=== PATIENT | male | born 2000 | race Caucasian/White ===

== ENCOUNTER 2024-04-28 11:33 | Inpatient (IN) | payer OTHER ==
[~2024-04-28] VITALS: Ht 180.3 cm; Wt 115.8 kg
[2024-04-28] MEDS: KCL 10MEQ/100ML SWI (KRUN) 10 MEQ in IV 1 EA IV ONE ×2 (12:15→15:26)
[2024-04-28] MEDS: NS 1,000 ML IV ONE (12:15)
[2024-04-28] MEDS: METOCLOPRAMIDE INJ 10MG/2ML VIAL IV ONE (12:15)
[2024-04-28 12:16] LABS: BASO # 0.1 10^3/uL (0.0-0.2); BASO % 0.7 % (0.0-1.0); EOS # 0.1 10^3/uL (0.0-0.5); EOS % 1.8 % (0.0-3.0); HEMATOCRIT 47.7 % (42.0-52.0); LYMPH # 2.1 10^3/uL (1.5-5.0); LYMPH % 28.4 % (24.0-44.0); MEAN CORPUSCULAR HEMOGLOBIN 29.1 pg (27.0-33.0); MEAN CORPUSCULAR HGB CONC 35.6 g/dl (32.0-36.5); MEAN CORPUSCULAR VOLUME 81.7 fl (80.0-96.0); MONO # 0.8 10^3/uL (0.0-0.8); MONO % 10.5 % (2.0-8.0); NEUTROPHILS # 4.2 10^3/uL (1.5-8.5); NEUTROPHILS % 57.8 % (36.0-66.0); PLATELET COUNT, AUTOMATED 328 10^3/uL (150-450); RED BLOOD COUNT 5.84 10^6/uL (4.30-6.10); WHITE BLOOD COUNT 7.2 10^3/uL (4.0-10.0)
[2024-04-28] MEDS ORDERED: LORazepam 2 MG/ML 1ML VIAL IV STA (12:31)
[2024-04-28 12:34] LABS: LIPASE 32 U/L (12-53)
[2024-04-28 12:36] LABS: ALKALINE PHOSPHATASE 60 U/L (46-116); ALT/SGPT 28 U/L (7.0-40); AST/SGOT 19 U/L (<34); BILIRUBIN,DIRECT 0.3 MG/DL (<0.4); TOTAL PROTEIN 6.9 G/DL (5.7-8.2)
[2024-04-28 13:02] LABS: MAGNESIUM LEVEL 1.9 MG/DL (1.8-2.4)
[2024-04-28 13:03] LABS: CK-MB VALUE MASS < 1.0 NG/ML (<3.6)
[2024-04-28 13:10] LABS: CPK CREATINE PHOSPHOKINASE 161 U/L (46-171); MB/CK RELATIVE INDEX 0.62 (< OR =4)
[2024-04-28] MEDS: POTASSIUM CHLORIDE 10MEQ SR TABLET PO ONE (13:39)
[2024-04-28 15:55] LABS: AMPHETAMINES LEVEL URINE NEGATIVE (NEGATIVE); BARBITURATES URINE NEGATIVE (NEGATIVE)
[2024-04-28 15:56] LABS: BENZODIAZEPINES URINE NEGATIVE (NEGATIVE); COCAINE METABOLITE URINE NEGATIVE (NEGATIVE); METHADONE URINE NEGATIVE (NEGATIVE); OPIATES URINE NEGATIVE (NEGATIVE); PHENCYCLIDINE URINE NEGATIVE (NEGATIVE)
[2024-04-28 16:03] LABS: CANNABINOIDS URINE POSITIVE (NEGATIVE)
[2024-04-28] MEDS ORDERED: HOME MED LIST COMPLETE! XX SCH (16:10)
[2024-04-28] MEDS ORDERED: LR 1,000 ML IV SCH (16:15)
[2024-04-28] MEDS ORDERED: MOM 30ML SUSPENSION UDC PO PRN (16:15)
[2024-04-28] MEDS: POTASSIUM CHLORIDE 10MEQ SR TABLET PO SCH (16:52)
[2024-04-28] MEDS: ONDANSETRON 4MG ORAL DISINTEGRATING TAB SL SCH (16:52)
[2024-04-28 17:33] VITALS: BP 137/83; TEMP 98.2; O2SAT 98
[2024-04-28] MEDS: ACETAMINOPHEN TAB 650MG DOSE (2X325MG) PO PRN (17:43)
[2024-04-28] MEDS: PINK BISMUTH SUSP 524MG/30ML ORAL SYRINGE PO SCH (17:58)
[2024-04-28] MEDS: POTASSIUM CHLORIDE INJ 20 MEQ in LR 1,000 ML IV SCH (17:58)
[2024-04-28 19:08] LABS: BLOOD UREA NITROGEN 15 MG/DL (9-23); CARBON DIOXIDE LEVEL 30 MMOL/L (20-31); CHLORIDE LEVEL 99 MMOL/L (98-107); CREATININE FOR GFR 0.93 MG/DL (0.70-1.30); GLOMERULAR FILTRATION RATE > 60.0 (>60); GLUCOSE, FASTING 92 MG/DL (60-100); PHOSPHORUS LEVEL 3.4 MG/DL (2.5-4.9); POTASSIUM SERUM 3.7 MMOL/L (3.5-5.1); SODIUM LEVEL 135 MMOL/L (136-145)
[2024-04-28 20:00] VITALS: BP 131/85; TEMP 98.3; O2SAT 99
[2024-04-29 04:00] VITALS: BP 139/87; TEMP 97.9; O2SAT 99
[2024-04-29 07:01] LABS: ALBUMIN 3.7 G/DL (3.2-5.2); BLOOD UREA NITROGEN 12 MG/DL (9-23); CALCIUM LEVEL 8.9 MG/DL (8.5-10.1); CARBON DIOXIDE LEVEL 30 MMOL/L (20-31); CHLORIDE LEVEL 104 MMOL/L (98-107); CREATININE FOR GFR 1.03 MG/DL (0.70-1.30); GLOMERULAR FILTRATION RATE > 60.0 (>60); GLUCOSE, FASTING 93 MG/DL (60-100); MAGNESIUM LEVEL 2.1 MG/DL (1.8-2.4); PHOSPHORUS LEVEL 4.1 MG/DL (2.5-4.9); POTASSIUM SERUM 3.4 MMOL/L (3.5-5.1); SODIUM LEVEL 140 MMOL/L (136-145)
[2024-04-29] MEDS: POTASSIUM CHLORIDE 10MEQ SR TABLET PO SCH (08:20)
[2024-04-29] MEDS: AZITHROMYCIN 250MG TABLET PO ONE (10:02)
[2024-04-29 12:00] VITALS: BP 141/82; TEMP 97.2; O2SAT 99
[2024-04-29] MEDS: NITAZOXANIDE 500 MG TAB (ALINIA) PO SCH (12:23)
[2024-04-29] MEDS: LR 1,000 ML IV SCH (13:54)
[2024-04-29 20:21] VITALS: BP 139/88; TEMP 97.4; O2SAT 100
[2024-04-30 03:54] VITALS: BP 127/66; TEMP 97; O2SAT 98
[2024-04-30 07:07] LABS: ALBUMIN 3.5 G/DL (3.2-5.2); BLOOD UREA NITROGEN 12 MG/DL (9-23); CALCIUM LEVEL 8.8 MG/DL (8.5-10.1); CARBON DIOXIDE LEVEL 27 MMOL/L (20-31); CHLORIDE LEVEL 107 MMOL/L (98-107); CREATININE FOR GFR 0.95 MG/DL (0.70-1.30); GLOMERULAR FILTRATION RATE > 60.0 (>60); GLUCOSE, FASTING 87 MG/DL (60-100); PHOSPHORUS LEVEL 4.6 MG/DL (2.5-4.9); POTASSIUM SERUM 3.6 MMOL/L (3.5-5.1); SODIUM LEVEL 140 MMOL/L (136-145)
[2024-04-30] MEDS: LOPERAMIDE 2 MG CAPLET PO ONE (08:12)
[2024-04-30] MEDS: SCOPOLAMINE 1MG TRANSDERMAL PATCH TOP SCH (09:41)
[2024-04-30 12:00] VITALS: BP 136/78; TEMP 98.1; O2SAT 98
[2024-04-30 18:11] VITALS: TEMP 98.9
[2024-04-30 20:00] VITALS: BP 137/88; TEMP 97.7; O2SAT 98
[2024-05-01 04:00] VITALS: BP 152/79; TEMP 97; O2SAT 98
[2024-05-01 06:55] LABS: HEMATOCRIT 43.8 % (42.0-52.0); MEAN CORPUSCULAR HEMOGLOBIN 29.6 pg (27.0-33.0); MEAN CORPUSCULAR HGB CONC 34.2 g/dl (32.0-36.5); MEAN CORPUSCULAR VOLUME 86.6 fl (80.0-96.0); PLATELET COUNT, AUTOMATED 261 10^3/uL (150-450); RED BLOOD COUNT 5.06 10^6/uL (4.30-6.10); WHITE BLOOD COUNT 9.2 10^3/uL (4.0-10.0)
[2024-05-01 07:22] LABS: ALBUMIN 3.6 G/DL (3.2-5.2); BLOOD UREA NITROGEN 11 MG/DL (9-23); CALCIUM LEVEL 8.8 MG/DL (8.5-10.1); CARBON DIOXIDE LEVEL 26 MMOL/L (20-31); CHLORIDE LEVEL 109 MMOL/L (98-107); CREATININE FOR GFR 0.81 MG/DL (0.70-1.30); GLOMERULAR FILTRATION RATE > 60.0 (>60); GLUCOSE, FASTING 92 MG/DL (60-100); PHOSPHORUS LEVEL 4.2 MG/DL (2.5-4.9); POTASSIUM SERUM 4.5 MMOL/L (3.5-5.1); SODIUM LEVEL 142 MMOL/L (136-145)
[2024-05-01 11:02] LABS: HIV 1&2 SCREEN NEGATIVE (NEGATIVE)
[2024-05-01 12:02] VITALS: BP 150/68; TEMP 97.9; O2SAT 98
[2024-05-01] MEDS: LACTOBACILLUS ACIDOPHILUS CAP (BACID) PO SCH (15:49)
[2024-05-01 21:11] VITALS: BP 141/68; TEMP 97.9; O2SAT 97
[2024-05-02 04:11] VITALS: BP 132/75; TEMP 97.3; O2SAT 99
[2024-05-02] MEDS: ONDANSETRON 4MG ORAL DISINTEGRATING TAB SL PRN (06:30)
[2024-05-02 06:31] LABS: HEMATOCRIT 45.3 % (42.0-52.0); MEAN CORPUSCULAR HEMOGLOBIN 29.2 pg (27.0-33.0); MEAN CORPUSCULAR HGB CONC 33.1 g/dl (32.0-36.5); MEAN CORPUSCULAR VOLUME 88.3 fl (80.0-96.0); PLATELET COUNT, AUTOMATED 256 10^3/uL (150-450); RED BLOOD COUNT 5.13 10^6/uL (4.30-6.10); WHITE BLOOD COUNT 9.4 10^3/uL (4.0-10.0)
[2024-05-02 07:03] LABS: ALBUMIN 3.7 G/DL (3.2-5.2); BLOOD UREA NITROGEN 10 MG/DL (9-23); CARBON DIOXIDE LEVEL 28 MMOL/L (20-31); CHLORIDE LEVEL 107 MMOL/L (98-107); CREATININE FOR GFR 0.89 MG/DL (0.70-1.30); GLOMERULAR FILTRATION RATE > 60.0 (>60); GLUCOSE, FASTING 86 MG/DL (60-100); PHOSPHORUS LEVEL 4.9 MG/DL (2.5-4.9); POTASSIUM SERUM 4.6 MMOL/L (3.5-5.1); SODIUM LEVEL 140 MMOL/L (136-145)
[2024-05-02] MEDS: LOPERAMIDE 2 MG CAPLET PO ONE (09:06)
[2024-05-02] MEDS: ONDANSETRON 4MG ORAL DISINTEGRATING TAB SL SCH (09:06)
[2024-05-02] MEDS ORDERED: ONDA-282 SL (09:14)
[2024-05-02] MEDS ORDERED: TRAN1DIS4 TOP (09:14)
[2024-05-02] MEDS ORDERED: POTA-136 PO (09:14)
[2024-05-02] MEDS ORDERED: RISATAB3 PO (09:14)
[2024-05-02] MEDS ORDERED: [UNRECOGNIZED DRUG - CODE] PO (09:14)
[2024-05-02 12:00] VITALS: BP 141/85; TEMP 98.1; O2SAT 97
== END 2024-05-02 14:30 | disposition home or self-care (01) | DRG 248 ==
LOC: EDBD 11:33 → M ED 11:33 → M ED INP 16:40 → M MSPAV 17:24 → OBSVTOIN 04-30 13:40
PROVIDERS: ADMIT Student in an Organized Health Care Education/Training Program; ATTEND Student in an Organized Health Care Education/Training Program
DX: A04.0 Enteropathogenic Escherichia coli infection (principal); E87.6 Hypokalemia; E66.9 Obesity, unspecified; Z68.35 Body mass index [BMI] 35.0-35.9, adult; A07.2 Cryptosporidiosis